=== PATIENT | male | born 1955 | race Caucasian/White ===

== ENCOUNTER 2024-04-20 20:50 | Inpatient (IN) | payer MEDICARE, MEDICAID ==
[2024-04-20] MEDS ORDERED: Sodium Chloride 0.9% 1,000 ML IV SCH (21:30)
[2024-04-20] MEDS ORDERED: Ondansetron PF 4 MG/2 ML Vial IVP PRN (21:30)
[2024-04-20] MEDS ORDERED: Ondansetron ODT 4 MG TAB SL PRN (21:30)
[2024-04-20] MEDS ORDERED: Acetaminophen 325 MG TAB PO PRN ×2 (21:30→22:02)
[2024-04-20] MEDS ORDERED: Morphine 4 MG/ML VIAL SLOW IVP PRN (21:55)
[2024-04-21] MEDS: HYDROcodone/Acetaminophen 5/325 mg Tablet PO PRN (00:35)
[2024-04-21 04:53] LABS: #Basophils 0.06 10x3/uL (0.0-0.2); %Basophils 0.8 % (0.0-1.0); %Eosinophils 3.3 % (0.0-10.0); %Lymphocytes 19.1 % (21.0-51.0); %Monocytes 10.7 % (0.0-10.0); %Neutrophils 65.5 % (42.0-75.0); Hematocrit 37.7 % (42.0-52.0); Hemoglobin 12.8 g/dL (14.0-18.0); Mean Corpuscular Hemoglobin 32.9 pg (27.0-31.0); Mean Corpuscular Volume 96.9 fL (78.0-98.0); Platelet Count 296 10x3/uL (130-400); RBC Distribution Width 13.7 % (11.5-14.5); Red Blood Cell (RBC) Count 3.89 mill/uL (4.70-6.10)
[2024-04-21 05:18] LABS: Anion Gap 15 mmol/L (10-20); BUN (Urea Nitrogen) 18 mg/dL (8.4-25.7); Calc. Creatinine Clearance 81 mL/min (70-130); Calcium 8.5 mg/dL (7.8-10.44); Chloride 103 mmol/L (98-107); Estimated GFR 95; Glucose 78 mg/dL (80-115); Potassium 3.3 mmol/L (3.5-5.1); Sodium 140 mmol/L (136-145)
[2024-04-21 05:32] LABS: Carbon Dioxide 25 mmol/L (23-31)
[2024-04-21] MEDS: Gabapentin 300 MG CAP PO SCH (10:11)
[2024-04-21] MEDS: Potassium Chloride 20 MEQ TAB PO SCH (10:11)
[2024-04-21] MEDS: Losartan 25 MG TAB PO SCH (10:12)
[2024-04-21] MEDS: Pantoprazole DR 40 MG TAB PO SCH (10:12)
[2024-04-21] MEDS: Apixaban 5 MG TAB PO SCH (10:12)
[2024-04-21 14:26] LABS: Magnesium 1.9 mg/dL (1.6-2.6)
[2024-04-21] MEDS: Magnesium 2 GM/50 ML(in water) 2 GM in Premix 1 BAG IVPB SCH (18:43)
[2024-04-21 20:38] VITALS: BMI 21.9
[2024-04-22 04:51] LABS: #Basophils 0.03 10x3/uL (0.0-0.2); %Basophils 0.4 % (0.0-1.0); %Eosinophils 4.4 % (0.0-10.0); %Monocytes 11.3 % (0.0-10.0); %Neutrophils 71.5 % (42.0-75.0); Mean Corpuscular HGB CONC 34.2 g/dL (32.0-36.0); Mean Corpuscular Hemoglobin 32.3 pg (27.0-31.0); Mean Corpuscular Volume 94.5 fL (78.0-98.0); Mean Platelet Volume 9.8 fL (7.4-10.4); Platelet Count 362 10x3/uL (130-400); RBC Distribution Width 13.4 % (11.5-14.5); Red Blood Cell (RBC) Count 4.02 mill/uL (4.70-6.10)
[2024-04-22 05:14] LABS: Anion Gap 15 mmol/L (10-20); BUN (Urea Nitrogen) 13 mg/dL (8.4-25.7); Calc. Creatinine Clearance 96 mL/min (70-130); Calcium 8.6 mg/dL (7.8-10.44); Carbon Dioxide 23 mmol/L (23-31); Chloride 107 mmol/L (98-107); Estimated GFR 100; Glucose 96 mg/dL (80-115); Potassium 3.5 mmol/L (3.5-5.1); Sodium 141 mmol/L (136-145)
[2024-04-22] MEDS: Gabapentin 300 MG CAP PO SCH (10:50)
[2024-04-22] MEDS: Gabapentin 100 MG CAP PO SCH (15:31)
[2024-04-22 16:10] LABS: Bacteria/HPF None Seen HPF (None Seen); Bilirubin Negative (Negative); Blood, Urine Negative (Negative); CAUTI Indications for Culture Acute Hematuria; Clarity Clear (Clear); Glucose, Urine (Dipstick) Normal (Negative); Ketone, Urine Trace mg/dL (Negative); Leukocyte Negative Leu/uL (Negative); Nitrite Negative (Negative); Protein, Urine (Dipstick) 10 mg/dL (Neg-Trace); RBC/HPF 0-3 HPF (0-3); Specific Gravity, Urine 1.026 (1.002-1.036); Squamous Epithelial None Seen HPF (0-3); WBC/HPF 0-3 HPF (0-3)
[2024-04-22 16:17] LABS: Urine Culture Reflex No No
[2024-04-23 04:31] LABS: #Basophils 0.04 10x3/uL (0.0-0.2); %Basophils 0.5 % (0.0-1.0); %Eosinophils 5.4 % (0.0-10.0); %Lymphocytes 14.1 % (21.0-51.0); %Monocytes 10.5 % (0.0-10.0); Hematocrit 37.4 % (42.0-52.0); Hemoglobin 12.7 g/dL (14.0-18.0); Mean Corpuscular Hemoglobin 32.2 pg (27.0-31.0); Mean Corpuscular Volume 94.9 fL (78.0-98.0); Mean Platelet Volume 9.6 fL (7.4-10.4); Platelet Count 425 10x3/uL (130-400); RBC Distribution Width 13.2 % (11.5-14.5); Red Blood Cell (RBC) Count 3.94 mill/uL (4.70-6.10)
[2024-04-23 04:46] LABS: Anion Gap 15 mmol/L (10-20); BUN (Urea Nitrogen) 15 mg/dL (8.4-25.7); Calc. Creatinine Clearance 102 mL/min (70-130); Calcium 8.6 mg/dL (7.8-10.44); Carbon Dioxide 25 mmol/L (23-31); Chloride 105 mmol/L (98-107); Estimated GFR 102; Glucose 94 mg/dL (80-115); Potassium 3.6 mmol/L (3.5-5.1); Sodium 141 mmol/L (136-145)
[2024-04-23] MEDS ORDERED: Simethicone Chewable 80 MG TAB PO PRN (07:41)
[2024-04-23] MEDS: Docusate 100 MG CAP PO SCH (08:23)
[2024-04-23] MEDS: Senokot 8.6 MG TAB PO SCH (08:23)
[2024-04-23] MEDS: Polyethylene Glycol 3350 17 GM Packet PO SCH (08:24)
[2024-04-23] MEDS ORDERED: Calcium Carbonate 500 MG ChewTAB PO PRN (08:57)
[2024-04-23] MEDS: Sucralfate 1 GM/10 ML UDCUP PO SCH (09:54)
[2024-04-23] MEDS: Lidocaine Viscous Sol 2% 15 ml UD Cup ONE (10:08)
[2024-04-23 11:47] VITALS: BP 132/93; TEMP 98.3
[2024-04-23] MEDS: Lidocaine 2% Viscous Solution 10 ML, Aluminum & Magnesium Hydroxide 30 ML SSW SCH (14:38)
[2024-04-24] MEDS ORDERED: Polyethylene Glycol 3350 17 GM Packet PO SCH (09:00)
[2024-04-28] MEDS ORDERED: Apixaban 5 MG TAB PO SCH (09:00)
== END 2024-04-23 15:03 | disposition home or self-care (01) | DRG 176 ==
LOC: OBS 20:50 → OBSVTOIN 04-21 12:07
PROVIDERS: ADMIT Student in an Organized Health Care Education/Training Program; ATTEND Student in an Organized Health Care Education/Training Program
DX: I26.99 Other pulmonary embolism without acute cor pulmonale (principal); I82.411 Acute embolism and thrombosis of right femoral vein; I10 Essential (primary) hypertension; K21.9 Gastro-esophageal reflux disease without esophagitis; Z90.49 Acquired absence of other specified parts of digestive tract; Z90.89 Acquired absence of other organs; Z98.890 Other specified postprocedural states; Z82.49 Family history of ischemic heart disease and other diseases of the circulatory system; Z80.0 Family history of malignant neoplasm of digestive organs; Z87.891 Personal history of nicotine dependence; N28.9 Disorder of kidney and ureter, unspecified; Z79.899 Other long term (current) drug therapy; I49.8 Other specified cardiac arrhythmias; K59.00 Constipation, unspecified; K57.10 Diverticulosis of small intestine without perforation or abscess without bleeding; Z79.01 Long term (current) use of anticoagulants; I08.1 Rheumatic disorders of both mitral and tricuspid valves
CPT/HCPCS: 36415; 80048; 81001; 83735; 84100; 85025; 93005; 93010; 93306; 93970; G0378; J3475